=== PATIENT | female | born 1995 | race Caucasian/White ===

== ENCOUNTER 2017-07-24 21:29 | Emergency (ER) | payer OTHER ==
[~2017-07-24] VITALS: Ht 162.6 cm; Wt 58.0 kg
[2017-07-24 21:33] VITALS: Ht 162.6 cm; Wt 58.0 kg
[2017-07-25 00:59] VITALS: BP 108/63
== END 2017-07-25 00:59 | disposition home or self-care (01) ==
LOC: ED 21:29
DX: R10.9 Unspecified abdominal pain (principal); B34.9 Viral infection, unspecified
CPT/HCPCS: J1885